=== PATIENT | male | born 1995 | race Caucasian/White ===

== ENCOUNTER 2021-10-02 19:05 | Emergency (ER) | payer OTHER, SELFPAY ==
--- NOTE | ~2021-10-02 | XR_ITS ---
EXAMINATION: XR nasal bones min 3V EXAM DATE: 10/02/2021 19:29 INDICATION: Nasal Pain; injury 09/22/21 during martial arts. TECHNIQUE: Frontal and bilateral lateral nasal bone images. There is no prior study for comparison. FINDINGS: There are no acute nasal bones fractures or dislocations identified. There is no subcutane ous gas. The soft tissue is unremarkable. There are no radiopaque foreign bodies. IMPRESSION: 1. Unremarkable nasal bone x-ray exam. Reviewed, dictated and finalized at location [facility] [employer]
[2021-10-02 19:14] VITALS: BP 116/73; PULSE 84; RESP 12; TEMP 36.7; O2SAT 98
--- NOTE | 2021-10-02 19:14 | ED.GENADULT ---
HPI - General Adult General Chief complaint: Epistaxis Stated complaint: nose injury Time Seen by Provider: 10/02/21 19:14 Source: patient and RN notes reviewed Mode of arrival: ambulatory Limitations: no limitations History of Present Illness HPI narrative: Sylvain is a 26 year old male patient who ambulated into [facility]. He states he hit the mat with his nose during [employer] training. The incident occurred on 09/22/21. Patient states he is worried his nose is broke and would need to go to ED. Injury is greater than 7 days old. Patient states he can breathe normally out of his right nare patient states decreased airflow in the left MD complaint: nasal pain and swelling Related Data Home Medications Medication Instructions Recorded Confirmed famotidine [Zantac-360 20 mg PO DAILY 10/02/21 10/02/21 (famotidine)] Allergies Allergy/AdvReac Type Severity Reaction Status Date / Time Sulfa (Sulfonamide Allergy Unknown Rash Verified 10/02/21 19:19 Antibiotics) Review of Systems Review of Systems: CONSTITUTIONAL: Denies body aches, fever, chills, or sweats. EYES: Denies visual changes, redness, or discharge. ENT: Denies rhinorrhea, congestion, sore throat, or otalgia; + nasal pain and bruising. CARDIOVASCULAR: Denies chest pain, palpitations, or edema. RESPIRATORY: Denies cough or dyspnea. GASTROINTESTINAL: Denies abdominal pain, nausea, vomiting, or diarrhea. GENITOURINARY: Denies dysuria or hematuria. SKIN: Denies rash, itching, or wounds. MUSCULOSKELETAL: Denies back pain, joint pain, or myalgia. NEUROLOGIC: Denies headache, numbness, tingling, or weakness. PSYCH: Denies depression or anxiety. All systems reviewed & are unremarkable except as noted in HPI and below PMFSH Family History Family History Mother Hypertension Asthma Other Family history of malignant neoplasm Social History Social History Smoking status: Never smoker Alcohol intake: never Comments At time of signature, I have reviewed and agree with nursing past medical, surgical, social and family history unless otherwise noted. Please see nursing chart for further information. There is no relevant family history pertinent to the presenting complaint Exam Narrative: GENERAL: Well-appearing, well-nourished, and in no acute distress. HEAD: Normocephalic, atraumatic. EYES: EOMI. No redness or drainage. Conjunctivae normal. ENT: Mucous membranes pink and moist. Nares clear. No rhinorrhea. small septal deviation, decreased aeration to left nostril,minimal edema noted to nasal bridge. NECK: Normal AROM. Supple. No lymphadenopathy. CHEST: . Clear to auscultation. MUSCULOSKELETAL: No bony tenderness. EXTREMITIES: Normal range of motion. No edema. SKIN: Warm, dry, no rash. Capillary refill normal. Normal skin turgor. NEURO: No focal deficits. Alert and oriented x3. Gait steady. PSYCH: Normal affect. No signs of depression or anxiety. Course Vital Signs Vital signs: Vital Signs Temperature 36.7 C 10/02/21 19:14 Pulse Rate 84 10/02/21 19:14 Respiratory Rate 12 10/02/21 19:14 Blood Pressure 116/73 10/02/21 19:14 Pulse Oximetry 98 10/02/21 19:14 Temperature 36.7 C 10/02/21 19:14 Pulse Rate 84 10/02/21 19:14 Respiratory Rate 12 10/02/21 19:14 Blood Pressure 116/73 10/02/21 19:14 Pulse Oximetry 98 10/02/21 19:14 Reviewed Medical Decision Making MDM Narrative Medical decision making narrative: Impressions Nasal Bones X-Ray 10/02/21 19:32 IMPRESSION: 1. Unremarkable nasal bone x-ray exam. Medical Records Medical records reviewed: Yes I reviewed the external patient's medical records. Vital Signs Vital Signs: Vital Signs Temperature 36.7 C 10/02/21 19:14 Pulse Rate 84 10/02/21 19:14 Respiratory Rate 12 10/02/21 19:14 Blood Pressure 116/73 1
== END 2021-10-02 19:43 | disposition home or self-care (01) ==
PROVIDERS: Emergency Provider Nurse Practitioner Family
DX: S00.33XA Contusion of nose, initial encounter (principal); W22.8XXA Striking against or struck by other objects, initial encounter; Y93.89 Activity, other specified; Z86.16 Personal history of COVID-19
CPT/HCPCS: 70160; 99213; G0463